=== PATIENT | female | born 1950 | race Caucasian/White ===

== ENCOUNTER 2023-10-20 08:33 | Inpatient (IN) ==
[2023-10-20] MEDS: NOREPINEPHRINE BITARTRATE 8 MG in 0.9 % SODIUM CHLORIDE 242 ML IV SCH (08:45)
[2023-10-20] MEDS: VANCOMYCIN 1,000 MG in 0.9 % SODIUM CHLORIDE 250 ML IV ONE (09:29)
[2023-10-20] MEDS: 0.9 % SODIUM CHLORIDE 1,000 ML IV ONE (09:42)
[2023-10-20] MEDS: VANCOMYCIN PER PHARMACY IV ONE (09:42)
[2023-10-20] MEDS: 0.9 % SODIUM CHLORIDE 250 ML IV SCH ×2 (09:43→12:26)
[2023-10-20 10:05] LABS: Basophils # (Auto) 0.02 K/mcL (0.00-0.30); Basophils % (Auto) 0.2 % (0.0-2.0); Eosinophils # (Auto) 0.14 K/mcL (0.00-0.70); Eosinophils % (Auto) 1.2 % (0.0-7.0); Hematocrit 30.8 % (34.1-44.9); Hemoglobin 10.3 g/dL (11.2-15.7); Lymphocytes # (Auto) 0.37 K/mcL (1.50-4.80); Lymphocytes % (Auto) 3.2 % (15.5-49.0); Mean Cell Volume 91.4 fL (80.0-100.0); Mean Corpuscular HGB Conc 33.4 g/dL (31.0-36.0); Mean Platelet Volume 10.4 fL (8.8-12.5); Monocytes # (Auto) 0.71 K/mcL (0.10-0.90); Monocytes % (Auto) 6.1 % (1.0-12.0); Neutrophils % (Auto) 74.9 % (38.0-78.0); Platelet Count 276 K/mcL (140-440); RBC 3.37 M/mcL (3.59-5.38); Red Cell Distribution Width 15.7 % (11.5-14.5); WBC 11.6 K/mcL (4.5-11.0)
[2023-10-20 10:05] LABS: ALT/SGPT 19 U/L (<40); AST/SGOT 33 U/L (<32); Albumin 3.5 gm/dL (3.2-5.2); Albumin/Globulin Ratio 1.8 (1.0-2.3); Alkaline Phosphatase 150 U/L (39-117); Bilirubin,Total < 0.2 mg/dL (0.1-1.0); Blood Urea Nitrogen 36 mg/dL (8-23); Calcium 8.9 mg/dL (8.6-10.4); Carbon Dioxide 20 mmol/L (22-30); Chloride 99 mmol/L (96-108); Globulin 1.9 gm/dL (2.2-3.7); Glomerular Filtration Rate 24; Glucose 77 mg/dL (70-105)
[2023-10-20 10:25] LABS: INR 1.2 (0.9-1.1); Prothrombin Time 16.1 sec (11.9-14.5)
[2023-10-20] MEDS: CEFEPIME 1 GM VIAL IV ONE (11:27)
[2023-10-20] MEDS: CEFEPIME 2 GM VIAL IV ONE (11:27)
[2023-10-20] MEDS ORDERED: SENNOSIDES 1 TABLET PO PRN (12:04)
[2023-10-20] MEDS ORDERED: MAGNESIUM SULFATE 2 GM/50 ML BAG IV PRN (12:04)
[2023-10-20] MEDS ORDERED: POTASSIUM CHLORIDE 40 MEQ in DEXTROSE 5% IN WATER 500 ML IV PRN (12:04)
[2023-10-20] MEDS ORDERED: POTASSIUM CHLORIDE 20 MEQ TABLET PO PRN (12:04)
[2023-10-20] MEDS ORDERED: ONDANSETRON 4 MG/2 ML VIAL IV PRN (12:04)
[2023-10-20] MEDS: 0.9 % SODIUM CHLORIDE 1,000 ML IV SCH (12:28)
[2023-10-20] MEDS: cefTRIAXone 1 GM VIAL IV SCH (12:38)
[2023-10-20 12:54] LABS: Appearance,Urine Cloudy (Clear); Bilirubin,Urine Negative (Negative); Color,Urine Yellow; Culture Indicated,Urine Yes; Glucose,Urine (UA) Negative (Negative); Ketones,Urine Negative (Negative); Leukocyte Esterase,Urine Small /uL (Negative); Nitrate,Urine Negative (Negative); PH,Urine 5.5 (5.0-9.0); Protein,Urine 100 mg/dL (Negative); Specific Gravity,Urine 1.015 (1.000-1.035); Urine Blood Large ery/mcL (Negative); Urine Cellular Cast 4 /lph (0-0); Urine RBC > 182 /hpf (0-1); Urine Squamous Epithelial Cell 1 /hpf (0-4); Urine WBC 14 /hpf (0-4); Urobilinogen,Urine Normal
[2023-10-20] MEDS: 0.9 % SODIUM CHLORIDE 10 ML SYRINGE IV SCH (13:59)
[2023-10-20] MEDS: DOCUSATE SODIUM 100 MG CAPSULE PO SCH (20:22)
[2023-10-20] MEDS: ACETAMINOPHEN 325 MG TABLET PO PRN (20:23)
[2023-10-21 06:47] LABS: Basophils # (Auto) 0.02 K/mcL (0.00-0.30); Basophils % (Auto) 0.1 % (0.0-2.0); Eosinophils % (Auto) 2.6 % (0.0-7.0); Hematocrit 28.1 % (34.1-44.9); Hemoglobin 9.3 g/dL (11.2-15.7); Lymphocytes # (Auto) 0.49 K/mcL (1.50-4.80); Lymphocytes % (Auto) 3.2 % (15.5-49.0); Mean Cell Volume 91.2 fL (80.0-100.0); Mean Corpuscular HGB Conc 33.1 g/dL (31.0-36.0); Mean Platelet Volume 9.9 fL (8.8-12.5); Monocytes # (Auto) 0.54 K/mcL (0.10-0.90); Monocytes % (Auto) 3.6 % (1.0-12.0); Neutrophils % (Auto) 90.4 % (38.0-78.0); Platelet Count 267 K/mcL (140-440); RBC 3.08 M/mcL (3.59-5.38); Red Cell Distribution Width 16.3 % (11.5-14.5); WBC 15.2 K/mcL (4.5-11.0)
[2023-10-21 07:22] LABS: ALT/SGPT 15 U/L (<40); AST/SGOT 32 U/L (<32); Albumin 3.1 gm/dL (3.2-5.2); Albumin/Globulin Ratio 1.5 (1.0-2.3); Alkaline Phosphatase 175 U/L (39-117); Bilirubin,Total < 0.2 mg/dL (0.1-1.0); Blood Urea Nitrogen 31 mg/dL (8-23); Calcium 8.3 mg/dL (8.6-10.4); Carbon Dioxide 19 mmol/L (22-30); Chloride 106 mmol/L (96-108); Globulin 2.1 gm/dL (2.2-3.7); Glomerular Filtration Rate 34; Glucose 84 mg/dL (70-105)
[2023-10-21] MEDS: LEVOTHYROXINE 75 MCG TABLET PO SCH (07:53)
[2023-10-21] MEDS: PANTOPRAZOLE 40 MG VIAL IV SCH (07:53)
[2023-10-21] MEDS: ENOXAPARIN 30 MG/0.3 ML SYRINGE SQ SCH (08:39)
[2023-10-21] MEDS: POLYETHYLENE GLYCOL 3350 17 GM PACKET PO PRN (08:39)
[2023-10-21] MEDS: ATORVASTATIN 10 MG TABLET PO SCH (08:39)
[2023-10-21] MEDS: HYDROXYCHLOROQUINE 200 MG TABLET PO SCH (08:40)
[2023-10-21] MEDS ORDERED: NOREPINEPHRINE BITARTRATE 8 MG in 0.9 % SODIUM CHLORIDE 242 ML IV PRN (11:34)
[2023-10-21] MEDS ORDERED: SUMAtriptan SUCCINATE 50 MG TABLET PO PRN (12:21)
[2023-10-21] MEDS: FLUoxetine HCL 20 MG CAPSULE PO SCH (12:48)
[2023-10-21] MEDS: ATORVASTATIN 10 MG TABLET PO ONE (13:34)
[2023-10-21] MEDS: clonazePAM 0.5 MG TABLET PO SCH (16:40)
[2023-10-21] MEDS: AMITRIPTYLINE 25 MG TABLET PO SCH (20:11)
[2023-10-21] MEDS: GABAPENTIN 300 MG CAPSULE PO SCH (20:11)
[2023-10-21] MEDS: PRAMIPEXOLE 0.25 MG TABLET PO SCH (20:12)
[2023-10-21] MEDS: PRAZOSIN 1 MG CAPSULE PO SCH (20:12)
[2023-10-21] MEDS: Progesterone Micronized 200 mg capsule PO SCH (20:13)
[2023-10-21] MEDS ORDERED: ZOLPIDEM 12.5 MG PO SCH (21:00)
[2023-10-21] MEDS ORDERED: PRAZOSIN 2 MG CAPSULE PO SCH (21:00)
[2023-10-21] MEDS ORDERED: OLANZAPINE 15 MG PO SCH (21:00)
[2023-10-21] MEDS ORDERED: [UNRECOGNIZED DRUG - OTHER] PO SCH (21:00)
[2023-10-21] MEDS ORDERED: ROSUVASTATIN 10 MG TABLET PO SCH (21:00)
[2023-10-21] MEDS ORDERED: EXT PO SCH (21:00)
[2023-10-22 06:44] LABS: ALT/SGPT 14 U/L (<40); AST/SGOT 28 U/L (<32); Albumin 2.7 gm/dL (3.2-5.2); Albumin/Globulin Ratio 1.4 (1.0-2.3); Alkaline Phosphatase 260 U/L (39-117); Bilirubin,Total < 0.2 mg/dL (0.1-1.0); Blood Urea Nitrogen 16 mg/dL (8-23); Calcium 8.2 mg/dL (8.6-10.4); Carbon Dioxide 20 mmol/L (22-30); Chloride 110 mmol/L (96-108); Glomerular Filtration Rate 74; Glucose 114 mg/dL (70-105)
[2023-10-22 06:46] LABS: Basophils # (Auto) 0.05 K/mcL (0.00-0.30); Basophils % (Auto) 0.4 % (0.0-2.0); Eosinophils # (Auto) 0.54 K/mcL (0.00-0.70); Eosinophils % (Auto) 4.3 % (0.0-7.0); Hematocrit 29.4 % (34.1-44.9); Lymphocytes # (Auto) 0.52 K/mcL (1.50-4.80); Lymphocytes % (Auto) 4.1 % (15.5-49.0); Mean Cell Volume 88.6 fL (80.0-100.0); Mean Platelet Volume 10.2 fL (8.8-12.5); Monocytes # (Auto) 0.66 K/mcL (0.10-0.90); Monocytes % (Auto) 5.2 % (1.0-12.0); Neutrophils % (Auto) 85.5 % (38.0-78.0); Platelet Count 293 K/mcL (140-440); RBC 3.32 M/mcL (3.59-5.38); Red Cell Distribution Width 16.6 % (11.5-14.5); WBC 12.6 K/mcL (4.5-11.0)
[2023-10-22] MEDS: ESTRADIOL 1 MG TABLET PO SCH (09:27)
[2023-10-22] MEDS: PROPRANOLOL 60 MG CAP.XL.24H PO SCH (09:28)
[2023-10-22] MEDS: POTASSIUM CHLORIDE 20 MEQ TABLET PO PRN (09:28)
[2023-10-22] MEDS: guaiFENesin/CODEINE 10 ML UDC PO PRN (19:05)
[2023-10-22] MEDS: GABAPENTIN 300 MG CAPSULE PO SCH (20:03)
[2023-10-22] MEDS: ATORVASTATIN 20 MG TABLET PO SCH (20:03)
[2023-10-23 05:59] LABS: Basophils # (Auto) 0.06 K/mcL (0.00-0.30); Basophils % (Auto) 0.8 % (0.0-2.0); Eosinophils % (Auto) 9.4 % (0.0-7.0); Hematocrit 29.6 % (34.1-44.9); Hemoglobin 10.3 g/dL (11.2-15.7); Lymphocytes # (Auto) 1.04 K/mcL (1.50-4.80); Mean Cell Volume 86.8 fL (80.0-100.0); Mean Corpuscular HGB Conc 34.8 g/dL (31.0-36.0); Mean Platelet Volume 10.1 fL (8.8-12.5); Monocytes # (Auto) 0.85 K/mcL (0.10-0.90); Monocytes % (Auto) 11.5 % (1.0-12.0); Neutrophils % (Auto) 62.5 % (38.0-78.0); Platelet Count 296 K/mcL (140-440); RBC 3.41 M/mcL (3.59-5.38); Red Cell Distribution Width 16.6 % (11.5-14.5); WBC 7.4 K/mcL (4.5-11.0)
[2023-10-23 06:43] LABS: ALT/SGPT 11 U/L (<40); AST/SGOT 24 U/L (<32); Albumin 2.7 gm/dL (3.2-5.2); Albumin/Globulin Ratio 1.4 (1.0-2.3); Alkaline Phosphatase 199 U/L (39-117); Bilirubin,Total < 0.2 mg/dL (0.1-1.0); Blood Urea Nitrogen 11 mg/dL (8-23); Calcium 8.6 mg/dL (8.6-10.4); Carbon Dioxide 23 mmol/L (22-30); Chloride 108 mmol/L (96-108); Glomerular Filtration Rate 86; Glucose 105 mg/dL (70-105)
[2023-10-23] MEDS: CIPROFLOXACIN 500 MG TABLET PO SCH (10:11)
[2023-10-23] MEDS: IPRATROPIUM/ALBUTEROL 3 ML AMPUL.NEB NEB PRN (23:42)
[2023-10-24 07:13] LABS: Phosphorous 3.5 mg/dL (2.5-4.5)
[2023-10-24 07:33] LABS: ALT/SGPT 9 U/L (<40); AST/SGOT 29 U/L (<32); Albumin 2.9 gm/dL (3.2-5.2); Albumin/Globulin Ratio 1.4 (1.0-2.3); Alkaline Phosphatase 174 U/L (39-117); Bilirubin,Total < 0.2 mg/dL (0.1-1.0); Blood Urea Nitrogen 11 mg/dL (8-23); Calcium 8.8 mg/dL (8.6-10.4); Carbon Dioxide 23 mmol/L (22-30); Chloride 104 mmol/L (96-108); Globulin 2.1 gm/dL (2.2-3.7); Glomerular Filtration Rate 86; Glucose 104 mg/dL (70-105)
[2023-10-24 09:16] LABS: Basophils # (Auto) 0.05 K/mcL (0.00-0.30); Basophils % (Auto) 0.8 % (0.0-2.0); Eosinophils # (Auto) 0.67 K/mcL (0.00-0.70); Eosinophils % (Auto) 10.4 % (0.0-7.0); Hematocrit 32.9 % (34.1-44.9); Hemoglobin 11.3 g/dL (11.2-15.7); Lymphocytes % (Auto) 20.2 % (15.5-49.0); Mean Cell Volume 86.4 fL (80.0-100.0); Mean Corpuscular HGB Conc 34.3 g/dL (31.0-36.0); Mean Platelet Volume 9.9 fL (8.8-12.5); Monocytes % (Auto) 10.9 % (1.0-12.0); Neutrophils % (Auto) 54.3 % (38.0-78.0); Platelet Count 296 K/mcL (140-440); RBC 3.81 M/mcL (3.59-5.38); Red Cell Distribution Width 16.4 % (11.5-14.5); WBC 6.4 K/mcL (4.5-11.0)
[2023-10-24] MEDS: FUROSEMIDE 40 MG/4 ML VIAL IV SCH (10:16)
== END 2023-10-24 14:13 | disposition home or self-care (01) | DRG 871 ==
LOC: ED 08:33 → ICU 11:50 → MEDSUR 10-23 15:09
PROVIDERS: ADMIT Internal Medicine; ATTEND Student in an Organized Health Care Education/Training Program